=== PATIENT | male | born 1955 | race Caucasian/White ===

== ENCOUNTER 2016-12-03 09:47 | Emergency (ER) | payer OTHER ==
[~2016-12-03] VITALS: Ht 188 cm; Wt 104.3 kg
[2016-12-03 10:18] LABS: ABSOLUTE BASOPHIL COUNT 0 /CUMM (0.0-0.2); ABSOLUTE EOSINOPHIL COUNT 0.2 /CUMM (0.0-0.7); ABSOLUTE GRANULOCYTE CT 7.2 /CUMM (1.4-6.5); ABSOLUTE LYMPH COUNT 2.7 /CUMM (1.2-3.4); ABSOLUTE MONOCYTE COUNT 0.9 /CUMM (0.10-0.60); BASOPHIL % 0.2 % (0.0-2.0); EOSINOPHIL % 2.1 % (0-5); GRANULOCYTE % 64.8 % (42.2-75.2); HEMATOCRIT 50.5 % (42-52); MEAN CORPUSCULAR HGB 28.9 PG (27.0-31.0); MEAN CORPUSCULAR HGB CONC 33.3 G/DL (33.0-37.0); MEAN CORPUSCULAR VOLUME 86.6 FL (80.0-94.0); MEAN PLATELET VOLUME 8.4 FL (7.4-10.4); PLATELET COUNT 208 /CUMM (130-400); RBC DISTRIBUTION WIDTH 14.7 % (11.5-14.5); RED BLOOD CELL CT 5.84 /CUMM (4.70-6.10); WHITE BLOOD CELL COUNT 11.1 /CUMM (4.8-10.8)
--- NOTE | 2016-12-03 10:29 | ED EYE COMPLAINT ---
History of Present Illness General Chief Complaint: General Adult Stated Complaint: DOUBLE VISION,ORNELAS X 5 DAYS S/P PT APPT Source: patient, family Exam Limitations: no limitations Vital Signs & Intake/Output Vital Signs & Intake/Output Vital Signs Date Time Temp Pulse Resp B/P Pulse O2 O2 Flow FiO2 Ox Delivery Rate 12/03 1544 97.5 74 18 153/80 92 12/03 1000 97.1 84 18 164/97 99 Room Air Allergies Coded Allergies: vancomycin (Intermediate, RASH 12/03/16) Reconcile Medications Alprazolam 0.25 MG TABLET 1 TAB PO DAILY PRN ANXIETY (Reported) Aspirin (Aspirin*) 81 MG TAB.CHEW 1 TAB PO DAILY HEART/BLOOD (Reported) Atenolol/Chlorthalidone (Atenolol-Chlorthalidone 50-25) 50 MG-25 MG TABLET 1 TAB PO DAILY BP (Reported) Augmentin (Augmentin 500-125 Tablet) 500 MG-125 MG TABLET 1 TAB PO BID SINUSITIS Cholecalciferol (Vitamin D3) (Vitamin D) 2,000 UNIT CAPSULE 1 CAP PO DAILY SUPPLEMENT (Reported) Cyclobenzaprine HCl 5 MG TABLET 1 TAB PO TID MUSCLE SPASMS (Reported) Multivitamin (Multi-Day Vitamins) 1 EACH TABLET 1 TAB PO DAILY SUPPLEMENT ( Reported) Omeprazole 20 MG TABLET.DR 1 TAB PO DAILY SUPPLEMENT (Reported) Potassium Gluconate (Potassium) 595 MG (99 MG) TABLET 2 TAB PO DAILY SUPPLEMENT (Reported) Tamsulosin HCl 0.4 MG CAP.ER.24H 1 CAP PO DAILY PROSTATE (Reported) Tramadol HCl 50 MG TABLET 1 TAB PO BIDP PRN PAIN Triage Note: C/O PAIN BEHIND R EYE, RADIAIING TO R WORSHIP WITH NECK PAIN X 5 DAYS. ALSO C/O DOUBLE VISION. STATES ATTRIBUTES SXS TO CERVICAL TRACTION TX ON 2 FOR OINCHED NERVE. Triage Nurses Notes Reviewed? yes Onset: Abrupt Duration: day(s): (5) Timing: single episode today Injury Environment: home Severity: moderate HPI: This is a 58-year-old male with history of previous nephrectomy secondary to cancer who presents to the ER for chief complaint of blurred vision in the right eye since Tuesday at 3:15. He states it is associated with pain around the eye on the right religion. His tried to get him to come to the ER but he refused to until today. He states the pain got worse it's moderate to severe in intensity about a 9 out of 10. No fever or chills. No associated trauma. On Tuesday prior to Tuesday he did have his third manipulation traction of his neck. He is getting that for physical therapy for some shoulder pain. He states that he felt the traction was longer than usual. No blurred vision in left eye. No associated other neurologic symptoms. No confusion. Currently the patient complains of pain, blurry vision in the right eye. No previous history of similar symptoms in the past before. Past History Travel History Traveled to [place] past 21 day No Medical History Any Pertinent Medical History? see below for history Cardiovascular: hypertension Cancer(s): KIDNEY Surgical History Surgical History: NEPRHRECTOMY Psychosocial History What is your primary language Greek Tobacco Use: Never used ETOH Use: denies use Family History Hx Contributory? No Review of Systems Review of Systems Constitutional: Denies: chills, fever. Eyes: Reports: blurred vision, pain. Ear: Reports: no symptoms. Nose: Reports: no symptoms. Mouth: Reports: no symptoms. Throat: Reports: no symptoms. Respiratory: Denies: cough, short of breath, sputum production. Cardiovascular: Denies: chest pain. GI: Reports: no symptoms. Genitourinary: Reports: no symptoms. Musculoskeletal: Reports: neck pain (CHRONIC). Skin: Reports: no symptoms. Neurological/Psychological: Denies: anxiety, confusion. Hematologic/Endocrine: Denies: bruising, bleeding. Immunologic/Allergic: Denies: splenectomy. All Other Systems: Reviewed and Negative Physical Exam General Appearance: well developed/nourished, alert, awake, mild distress General Inspection: normal inspection Eyelid: normal inspection, everted for exam Conjunctiva/Sclera: normal inspection Cornea: normal inspection, examined w/fluorescein EOM: intact Pupil: normal accommodation, normal pupil, PERRL General Inspection: normal inspection Eyelid: normal inspection Conjunctiva/Sclera: normal inspection Cornea: normal inspection EOM: intact Pupil: normal accommodation, normal pupil, PERRL Physical Exam Head: atraumatic Nose: normal inspection Mouth/Throat: normal mouth inspection Neck: normal inspection, supple Cardiovascular/Respiratory: normal breath sounds, regular rate/rhythm Neurologic/Psych: awake, alert, oriented x 3, normal mood/affect Skin: intact, normal color, warm/dry Progress Differential Diagnosis: MASS, TEMPORAL ARTERITIS, CAROTID INJURY, OPTIC NEURITIS Plan of Care: Orders Procedure Date/time Status WESTERGREN SED RATE 12/03 1040 Complete PARTIAL THROMBOPLASTIN TIME 12/03 1036 Complete PROTHROMBIN TIME 12/03 1036 Complete Add-on Test (ER Only) 12/03 1028 Active Add-on Test (ER Only) 12/03 1027 Active COMPREHENSIVE METABOLIC PANEL 12/03 1011 Complete CBC WITHOUT DIFFERENTIAL 12/03 1011 Complete EKG 12/03 1011 Active Laboratory Tests 12/03/16 1042: [facility] 12/03/16 1012: Anion Gap 13, Estimated GFR 44 L, BUN/Creatinine Ratio 15.6, Glucose 131 H, Calcium 10.1, Total Bilirubin 0.8, AST 30, ALT 50, Alkaline Phosphatase 67, Total Protein 7.5, Albumin 4.8, Globulin 2.7, Albumin/Globulin Ratio 1.8, PT 11.0, INR 1.05, APTT 36, CBC w Diff NO MAN DIFF REQ, RBC 5.84, MCV 86.6, MCH 28.9, RDW 14.7 H, MPV 8.4, Gran % 64.8, Lymphocytes % 24.5, Monocytes % 8.4, Eosinophils % 2.1, Basophils % 0.2, Absolute Granulocytes 7.2 H, Absolute Lymphocytes 2.7, Absolute Monocytes 0.9 H, Absolute Eosinophils 0.2, Absolute Basophils 0, PUBS MCHC 33.3 12/03/2016 2:01:[address] imaging and ultrasound are negative. Patient to go for MRI with and without contrast of the orbits at 3 PM. IV Tylenol was given for pain. Patient and family updated regarding status of care. Discussed case with Dr. Michael. Will follow up with the patient on Tuesday. He feels symptoms may be secondary to sinusitis and we will start on PO abx. (NIKO TIMMONS,RAFFI) Diagnostic Imaging: Viewed by Me: CT Scan, MRI, Ultrasound. Discussed w/RAD: CT Scan, MRI, Ultrasound. Radiology Impression: PATIENT: TARIK REID PRESENT AGE: 60 PATIENT ACCOUNT NO: [id number] : 53 LOCATION: [facility] ORDERING PHYSICIAN: RAFFI POPE MD SERVICE DATE: 12/03/16 EXAM TYPE: US - US- CAROTID-VERTEBRAL DOPPLER EXAMINATION: DUPLEX BILATERAL CAROTID ULTRASOUND CLINICAL INFORMATION: Double vision. COMPARISON: None. TECHNIQUE: Duplex bilateral carotid US was performed using real-time ultrasound and Doppler techniques (integrating B-mode 2D vascular images, Doppler spectral analysis and color flow Doppler imaging). These techniques were utilized to interrogate the extracranial carotid and vertebral arteries bilaterally. The degree of stenosis is based off criteria similar to NASCET. FINDINGS: No plaque is seen at the carotid bifurcations or within the internal carotid arteries. All velocities are within normal limits. ADDITIONAL FINDINGS: The vertebral arteries show antegrade flow. The external carotid arteries show no significant stenosis. IMPRESSION: No evidence of a hemodynamically significant stenosis involving the internal carotid arteries. DICTATED BY: FER LAZO MD DATE/TIME DICTATED:12/03/161222 OCCUPATIONAL THERAPY TECHNICIAN:ROBERTO DATE/TIME TRANSCRIBED:12/03/161222 CONFIDENTIAL, DO NOT COPY WITHOUT APPROPRIATE AUTHORIZATION. <Electronically signed in Other Vendor System> SIGNED BY: FER LAZO MD 12/03/161227 Initial ED EKG: NSR, PVC Rhythm Strip: normal sinus rhythm Comments: PATIENT: TARIK REID PRESENT AGE: 60 PATIENT ACCOUNT NO: [id number] : 53 LOCATION: [facility] ORDERING PHYSICIAN: RAFFI POPE MD SERVICE DATE: 12/03/16 EXAM TYPE: MRI - MRI-HEAD W & W/O JULIANNE EXAMINATION: MR BRAIN WITHOUT AND WITH CONTRAST CLINICAL INFORMATION: Right-sided headache. Right-sided double vision. COMPARISON: Head CT from earlier the same day TECHNIQUE: MRI of the brain was obtained using routine sequences before and after the intravenous administration of 10 mL of Gadavist. FINDINGS: Some of the series are motion degraded. No acute intracranial abnormality. There is mild generalized prominence of the ventricles, sulci, and extra-axial CSF spaces. There is a 4 mm focus of T2 prolongation in the right periventricular white matter adjacent to the mid body of the lateral ventricle. Otherwise 2-3 punctate foci of T2 prolongation are present in the bihemispheric white matter. There is a focal area of encephalomalacia and gliosis in the parasagittal right cerebellar hemisphere compatible with the sequela of a remote infarct. No focal reduced diffusion is seen to suggest acute or subacute cerebral ischemia. No intracranial mass, intracerebral edema, intra-axial blood products, midline shift, or extra-axial collection is visualized. No pathologic parenchymal, leptomeningeal, or pachymeningeal enhancement is appreciated on postcontrast sequences. The craniocervical junction and supersellar region appear unremarkable. Marrow signal is preserved. No upper cervical adenopathy is visualized. Normal arterial and venous vascular flow voids are present. There is mild mucosal thickening within the ethmoid air cells and retention cysts within the maxillary sinuses bilaterally. The visualized orbits appear unremarkable. IMPRESSION: Somewhat motion degraded study. No acute intracranial abnormality. No abnormal intracranial enhancement. Nonspecific, nonenhancing 4 mm focus of T2 prolongation in the right periventricular white matter, most likely in conjunction with few other foci of T2 prolongation, on the basis of chronic microangiopathy. 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 DICTATED BY: MICHAEL BULLARD MD DATE/TIME DICTATED:12/03/161542 OCCUPATIONAL THERAPY TECHNICIAN:ROBERTO DATE/TIME TRANSCRIBED:12/03/161542 CONFIDENTIAL, DO NOT COPY WITHOUT APPROPRIATE AUTHORIZATION. <Electronically signed in Other Vendor System> SIGNED BY: MICHAEL BULLARD MD 12/03/16 155 PATIENT: TARIK REID PRESENT AGE: 60 PATIENT ACCOUNT NO: [id number] : 53 LOCATION: [facility] ORDERING PHYSICIAN: RAFFI POPE MD SERVICE DATE: 12/03/16 EXAM TYPE: CAT - CT HEAD WO IV CONTRAST; CT ORBITS WO IV CONTRAST EXAMINATION: CT HEAD WITHOUT CONTRAST CT ORBITS WITHOUT CONTRAST CLINICAL INFORMATION: Right-sided blurred vision. Assess for mass or bleed. COMPARISON: None. TECHNIQUE: Multidetector CT imaging of the head and orbits spine was performed without the use of intravenous contrast. Coronal and sagittal reformatted images were generated at the technologist workstation. DLP: 787.36 mGy-cm. FINDINGS: CT head: There is no evidence of acute intracranial hemorrhage or territorial infarction. No abnormal mass-effect or midline shift is seen. Booker to white matter differentiation is well preserved. No extra-axial fluid collections are identified. The ventricles and sulci appear normal in size. There are small areas of low attenuation in the basal ganglia, which may be consistent with lacunar infarcts bilaterally. There is a wedge-shaped area of low attenuation in the posteromedial right cerebellar hemisphere, consistent with a chronic infarct. The right middle cerebral artery is dense compared to the left and there is a focal area of calcification in the mid M1 segment. The osseous structures and soft tissues are normal. The mastoid air cells are well-aerated. There is mucoperiosteal thickening in the left maxillary sinus and there is a retention cyst in the right maxillary sinus. The roofs of the temporomandibular joints are pneumatized bilaterally, a normal variant. CT orbits: The globes are symmetric. The lenses are in normal position. The periorbital structures appear normal. The extraocular muscles are symmetric and normal in appearance. The retrobulbar fat is maintained. The optic nerve sheath complexes appear unremarkable. The lacrimal apparatus is normal. The superior ophthalmic veins are normal in appearance. The cavernous sinuses, Meckel's caves, the optic chiasm and retrochiasmatic optic tracts are unremarkable. Views through the sella are unremarkable IMPRESSION: 1. There are no masses or bleeds. 2. Density in the right middle cerebral artery may be due to atheromatous calcifications, although thrombus cannot entirely be excluded. However, there is no evidence of an territorial acute infarct on the current study. 3. There are sequelae of a right posteromedial cerebellar infarct in the are lacunar infarcts in the basal ganglia. 4. The orbits appear unremarkable. DICTATED BY: TAMARA BLANK MD DATE/TIME DICTATED:12/03/161150 OCCUPATIONAL THERAPY TECHNICIAN:ROBERTO DATE/TIME TRANSCRIBED:12/03/161150 CONFIDENTIAL, DO NOT COPY WITHOUT APPROPRIATE AUTHORIZATION. <Electronically signed in Other Vendor System> SIGNED BY: TAMARA BLANK MD 12/03/16 1230 Departure Departure Time of Disposition: 1649 Disposition: HOME OR SELF CARE Condition: Stable Clinical Impression Primary Impression: Double vision Secondary Impressions: Acute ethmoidal sinusitis Referrals: MELQUIADES TIMMONS,OMERO Knutson (PCP/Family) BRIAN TIMMONS,PABLO Anaya Additional Instructions: Take the Augmentin as directed. Continue your daily aspirin. Take the tramadol as needed for pain. Please follow up with Dr. Michael in the office early next week. Return to the ER immediately for any worsening symptoms. Departure Forms: Customer Survey General Discharge Information Prescriptions: Current Visit Scripts Augmentin (Augmentin 500-125 Tablet) 1 TAB PO BID #14 TAB Tramadol HCl 1 TAB PO BIDP PRN PAIN #12 TAB
[2016-12-03 11:12] LABS: PTT 36 SEC (25-37)
--- NOTE | 2016-12-03 12:28 | ULTRASOUND REPORT ---
EXAMINATION: DUPLEX BILATERAL CAROTID ULTRASOUND CLINICAL INFORMATION: Double vision. COMPARISON: None. TECHNIQUE: Duplex bilateral carotid US was performed using real-time ultrasound and Doppler techniques (integrating B-mode 2D vascular images, Doppler spectral analysis and color flow Doppler imaging). These techniques were utilized to interrogate the extracranial carotid and vertebral arteries bilaterally. The degree of stenosis is based off criteria similar to NASCET. FINDINGS: No plaque is seen at the carotid bifurcations or within the internal carotid arteries. All velocities are within normal limits. ADDITIONAL FINDINGS: The vertebral arteries show antegrade flow. The external carotid arteries show no significant stenosis. IMPRESSION: No evidence of a hemodynamically significant stenosis involving the internal carotid arteries.
--- NOTE | 2016-12-03 12:30 | CT SCAN REPORT ---
EXAMINATION: CT HEAD WITHOUT CONTRAST CT ORBITS WITHOUT CONTRAST CLINICAL INFORMATION: Right-sided blurred vision. Assess for mass or bleed. COMPARISON: None. TECHNIQUE: Multidetector CT imaging of the head and orbits spine was performed without the use of intravenous contrast. Coronal and sagittal reformatted images were generated at the technologist workstation. DLP: 787.36 mGy-cm. FINDINGS: CT head: There is no evidence of acute intracranial hemorrhage or territorial infarction. No abnormal mass-effect or midline shift is seen. Booker to white matter differentiation is well preserved. No extra-axial fluid collections are identified. The ventricles and sulci appear normal in size. There are small areas of low attenuation in the basal ganglia, which may be consistent with lacunar infarcts bilaterally. There is a wedge-shaped area of low attenuation in the posteromedial right cerebellar hemisphere, consistent with a chronic infarct. The right middle cerebral artery is dense compared to the left and there is a focal area of calcification in the mid M1 segment. The osseous structures and soft tissues are normal. The mastoid air cells are well-aerated. There is mucoperiosteal thickening in the left maxillary sinus and there is a retention cyst in the right maxillary sinus. The roofs of the temporomandibular joints are pneumatized bilaterally, a normal variant. CT orbits: The globes are symmetric. The lenses are in normal position. The periorbital structures appear normal. The extraocular muscles are symmetric and normal in appearance. The retrobulbar fat is maintained. The optic nerve sheath complexes appear unremarkable. The lacrimal apparatus is normal. The superior ophthalmic veins are normal in appearance. The cavernous sinuses, Meckel's caves, the optic chiasm and retrochiasmatic optic tracts are unremarkable. Views through the sella are unremarkable IMPRESSION: 1. There are no masses or bleeds. 2. Density in the right middle cerebral artery may be due to atheromatous calcifications, although thrombus cannot entirely be excluded. However, there is no evidence of an territorial acute infarct on the current study. 3. There are sequelae of a right posteromedial cerebellar infarct in the are lacunar infarcts in the basal ganglia. 4. The orbits appear unremarkable.
--- NOTE | 2016-12-03 15:52 | MRI REPORT ---
EXAMINATION: MR BRAIN WITHOUT AND WITH CONTRAST CLINICAL INFORMATION: Right-sided headache. Right-sided double vision. COMPARISON: Head CT from earlier the same day TECHNIQUE: MRI of the brain was obtained using routine sequences before and after the intravenous administration of 10 mL of Gadavist. FINDINGS: Some of the series are motion degraded. No acute intracranial abnormality. There is mild generalized prominence of the ventricles, sulci, and extra-axial CSF spaces. There is a 4 mm focus of T2 prolongation in the right periventricular white matter adjacent to the mid body of the lateral ventricle. Otherwise 2-3 punctate foci of T2 prolongation are present in the bihemispheric white matter. There is a focal area of encephalomalacia and gliosis in the parasagittal right cerebellar hemisphere compatible with the sequela of a remote infarct. No focal reduced diffusion is seen to suggest acute or subacute cerebral ischemia. No intracranial mass, intracerebral edema, intra-axial blood products, midline shift, or extra-axial collection is visualized. No pathologic parenchymal, leptomeningeal, or pachymeningeal enhancement is appreciated on postcontrast sequences. The craniocervical junction and supersellar region appear unremarkable. Marrow signal is preserved. No upper cervical adenopathy is visualized. Normal arterial and venous vascular flow voids are present. There is mild mucosal thickening within the ethmoid air cells and retention cysts within the maxillary sinuses bilaterally. The visualized orbits appear unremarkable. IMPRESSION: Somewhat motion degraded study. No acute intracranial abnormality. No abnormal intracranial enhancement. Nonspecific, nonenhancing 4 mm focus of T2 prolongation in the right periventricular white matter, most likely in conjunction with few other foci of T2 prolongation, on the basis of chronic microangiopathy. 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
[2016-12-03] MEDS ORDERED: POTASSIUM99 M1 PO (15:59)
[2016-12-03] MEDS ORDERED: ATENOLOL-CHLOR1 EAC1 PO (15:59)
[2016-12-03] MEDS ORDERED: ASPIRIN81 M4 PO (16:00)
[2016-12-03] MEDS ORDERED: VITAMIN D2000 UNIT PO (16:00)
[2016-12-03] MEDS ORDERED: MULTI-DAY VITA1 EACH PO (16:01)
[2016-12-03] MEDS ORDERED: ALPRAZOLAM0.25 M1 PO (16:01)
[2016-12-03] MEDS ORDERED: TAMSULOSIN HCL0.4 M1 PO (16:01)
[2016-12-03] MEDS ORDERED: OMEPRAZOLE20 M3 PO (16:02)
[2016-12-03] MEDS ORDERED: CYCLOBENZAPRINE5 M2 PO (16:02)
[2016-12-03] MEDS ORDERED: TRAMADOL HCL50 M1 PO (16:51)
[2016-12-03] MEDS ORDERED: AUGMENTIN 500-1 EACH PO (16:51)
[2016-12-03 17:06] VITALS: BP 148/80
== END 2016-12-03 17:06 ==
LOC: ERH 09:47
PROVIDERS: Emergency Medicine
DX: J01.20 Acute ethmoidal sinusitis, unspecified (principal); H53.2 Diplopia
CPT/HCPCS: 70552; 70553; 93005; 93010; 96374; A9579; J0131